=== PATIENT | female | born 1985 | race African-American/Black ===

== ENCOUNTER 2018-01-07 18:06 | Emergency (ER) | payer OTHER ==
[~2018-01-07] VITALS: Ht 167.6 cm; Wt 59.0 kg
[~2018-01-07 18:06] MED LIST: IBUPROFEN 800800 M1 PO; NOHOMEMEDICATIONS; ULTRAM 50MG TAB50 MG PO; ZPAK PO
[2018-01-07 19:19] LABS: ABSOLUTE NEUTROPHILS 4.9 thou/uL (1.4-8.2); BASOPHILS 0.8 % (0.0-2.0); EOSINOPHILS 2.7 % (0.0-3.0); HEMATOCRIT 38.6 % (37.0-47.0); HEMOGLOBIN 12.9 gm/dL (12.0-15.0); LYMPHOCYTES 25.7 % (24.0-44.0); MCH 30.2 pg (26.0-34.0); MCHC 33.4 g/dL (28.0-37.0); MCV 90.4 fL (80.0-100.0); MONOCYTES 8.1 % (1.0-8.0); PLATELET COUNT 380 thou/uL (150-400); POLYS 62.7 % (36.0-66.0); RBC 4.27 mil/uL (4.20-5.00); RDW 13.4 % (10.5-14.5); WBC 7.8 thou/uL (4.0-11.0)
[2018-01-07 19:27] LABS: CALCIUM 9.7 mg/dL (8.5-10.1); CREATININE 0.7 mg/dL (0.6-1.0); POTASSIUM 3.7 mmol/L (3.5-5.1)
[2018-01-07] MEDS ORDERED: NORCO 5-325 TA1 EACH PO (21:55)
[2018-01-07] MEDS ORDERED: CLEOCIN HCL150 MG PO (21:55)
[2018-01-07 22:10] VITALS: BP 98/56
== END 2018-01-07 22:11 | disposition home or self-care (01) ==
LOC: ER 18:06
PROVIDERS: Emergency Medicine
DX: K04.7 Periapical abscess without sinus (principal); J45.909 Unspecified asthma, uncomplicated; F32.9 Major depressive disorder, single episode, unspecified; F43.10 Post-traumatic stress disorder, unspecified; Z88.1 Allergy status to other antibiotic agents